=== PATIENT | female | born 1945 | race Asian ===

== ENCOUNTER 2016-12-08 16:12 | Outpatient (CLI) | payer MEDICARE, OTHER | END 2016-12-08 16:13 | disposition short-term general hospital (02) | LOC: EMS 16:12 | PROVIDERS: ATTEND Surgery | DX: M79.604 Pain in right leg (principal); W06.XXXA Fall from bed, initial encounter; Y92.003 Bedroom of unspecified non-institutional (private) residence as the place of occurrence of the external cause | CPT/HCPCS: A0425; A0429 ==

== ENCOUNTER 2017-01-14 09:37 | Outpatient (CLI) | payer MEDICARE, OTHER | END 2017-01-14 09:38 | disposition short-term general hospital (02) | LOC: EMS 09:37 | PROVIDERS: ATTEND Surgery | DX: M25.551 Pain in right hip (principal); W18.2XXA Fall in (into) shower or empty bathtub, initial encounter; Y93.E1 Activity, personal bathing and showering; Y92.9 Unspecified place or not applicable | CPT/HCPCS: A0425; A0429 ==

== ENCOUNTER 2017-01-23 06:59 | Outpatient (CLI) | payer MEDICARE, OTHER | END 2017-01-23 07:00 | disposition EMS.NT | LOC: EMS 06:59 | PROVIDERS: ATTEND Surgery | DX: Z53.8 Procedure and treatment not carried out for other reasons (principal) ==

== ENCOUNTER 2017-01-27 17:44 | Outpatient (CLI) | payer MEDICARE, OTHER | END 2017-01-27 23:59 | disposition EMS.NT | LOC: EMS 17:44 | PROVIDERS: ATTEND Surgery | DX: Z03.89 Encounter for observation for other suspected diseases and conditions ruled out (principal); V00.811A Fall from moving wheelchair (powered), initial encounter; Y92.009 Unspecified place in unspecified non-institutional (private) residence as the place of occurrence of the external cause ==

== ENCOUNTER 2017-09-22 11:01 | Outpatient (CLI) | payer MEDICARE, OTHER | END 2017-09-22 11:02 | disposition short-term general hospital (02) | LOC: EMS 11:01 | PROVIDERS: ATTEND Surgery | DX: R10.30 Lower abdominal pain, unspecified (principal); R39.89 Other symptoms and signs involving the genitourinary system | CPT/HCPCS: A0425; A0429 ==